=== PATIENT | female | born 1990 | race Hispanic/Latino ===

== ENCOUNTER 2018-03-03 04:48 | Emergency (ER) | payer SELFPAY ==
[~2018-03-03] VITALS: Ht 154.9 cm; Wt 72.6 kg
--- OUTSIDE RECORDS SUMMARY | 2018-03-03 04:51 | XMS REPORT | Clinical Summary ---
Author Author KADIE [facility] Address Unknown Phone Unavailable Care Team Providers Care Endoscopic Technician Name Role Phone Sharpless PCP Allergies No Known Allergies Medications No known medications Active Problems Not on file Social History Date Tobacco Use Types Packs/Day Years Used Never Assessed Alcohol Use Drinks/Week oz/Week Comments No Sex Assigned at Date Recorded Not on file Industry Job Start Date Occupation Not on file Not on file Not on file Travel End Travel History Travel Start No recent travel history available. Last Filed Vital Signs Not on file Plan of Treatment Not on file Results Not on fileafter 03/02/2017
--- OUTSIDE RECORDS SUMMARY | 2018-03-03 04:51 | XMS REPORT | Clinical Summary ---
Author Author [facility] Organization [facility] Address Unknown Phone Unavailable Care Team Providers Care Java Security Architect Name Role Phone PCP Unavailable Allergies No Known Allergies Current Medications Prescription Sig. Disp. Refills Start End Date Status Date vitamins Take 1 tablet by mouth 90 tablet 3 05/13/19 Active ( PLUS) 27-1 mg daily. 14 TabIndications: omeprazole (PRILOSEC) 20 Take 1 capsule by mouth 30 capsule 3 05/17/19 Active mg delayed release daily. 14 capsuleIndications: Nausea/vomiting in , Abdominal pain complicating , antepartum acetaminophen-codeine Take 1 tablet by mouth 15 tablet 0 03/01/20 03/08/20 Active (TYLENOL/CODEINE #3) every 8 hours as needed 18 18 300-30 mg per for up to 7 days for tabletIndications: Pain. Abdominal pain complicating , antepartum, History of laparoscopic cholecystectomy gabapentin (NEURONTIN) Take 1 capsule by mouth 3 21 capsule 0 03/01/20 03/08/20 Active 100 mg times daily for 7 days. 18 18 capsuleIndications: Right upper quadrant abdominal pain, Abdominal pain complicating , antepartum, Incisional pain promethazine (PHENERGAN) Take 1 tablet by mouth 30 tablet 0 05/17/19 03/01/20 Discontin 25 mg tabletIndications: every 6 hours as needed 14 18 ued Nausea/vomiting in for Nausea or Vomiting. , Abdominal pain complicating , antepartum ondansetron (ZOFRAN) 8 mg Take 1 tablet by mouth 30 tablet 0 05/17/19 03/01/20 Discontin tabletIndications: every 8 hours as needed 14 18 ued Nausea/vomiting in for Nausea. , Abdominal pain complicating , antepartum docusate sodium (COLACE) Take 1 capsule by mouth 2 60 capsule 0 05/17/19 03/01/20 Discontin 100 mg times daily. 14 18 ued capsuleIndications: Nausea/vomiting in Active Problems Problem Noted Date Abdominal pain complicating , antepartum, General Surgery 05/15/2013 consulted for cholecystitis (only sludge on U/S). 05/13/2013 Nausea Right upper quadrant abdominal pain History of laparoscopic cholecystectomy Encounters Date Type Specialty Care Team Description 03/02/2018 Emergency Emergency Medicine 02/27/2018 Emergency Tori Amaya MD Right upper quadrant - Teo Montilla MD abdominal pain (Primary 03/01/2018 Dx); Nausea; Abdominal pain complicating , antepartum, General Surgery consulted for cholecystitis (only sludge on U/S).; History of laparoscopic cholecystectomy; Incisional pain after 03/02/2017 Social History Tobacco Use Types Packs/Day Years Used Date Never Smoker Smokeless Tobacco: Never Used Alcohol Use Drinks/Week oz/Week Comments Yes Sex Assigned at Date Recorded Not on file Last Filed Vital Signs Vital Sign Reading Time Taken Blood Pressure 143/91 03/02/2018 3:06 AM TALEND DEVELOPER Pulse 138 03/02/2018 3:21 AM TALEND DEVELOPER Temperature 36.8 C (98.2 F) 03/02/2018 3:06 AM TALEND DEVELOPER Respiratory Rate 20 03/02/2018 3:06 AM TALEND DEVELOPER Oxygen Saturation 96% 03/02/2018 3:06 AM TALEND DEVELOPER Inhaled Oxygen - - Concentration Weight 68 kg (150 lb) 02/27/2018 9:30 PM TALEND DEVELOPER Height 154.9 cm (5' 1") 02/27/2018 9:30 PM TALEND DEVELOPER Body Mass Index 28.34 02/27/2018 9:30 PM TALEND DEVELOPER Plan of Treatment Date Type Specialty Care Team Description 03/08/2018 Office Visit Family Practice Teo Montilla MD Department of Internal Medicine - [facility] [address], [id number] [place] [address] Audelia Monroy MD [address] [place] [id number] [phone] Health Maintenance Due Date Last Done Comments Cervical Cancer Scrn (3 2010 Yrs) IMM Influenza Seasonal 01/01/2018Jan to June (>/=19 yrs) Procedures Procedure Name Priority Date/Time Associated Diagnosis Comments BMP POC Routine 03/02/2018 Results for this 3:38 AM TALEND DEVELOPER procedure are in the results section. LIVER PROFILE STAT 03/02/2018 Results for this 3:28 AM TALEND DEVELOPER procedure are in the results section. CBC/DIFF STAT 03/02/2018 Results for this 3:28 AM TALEND DEVELOPER procedure are in the results section. LIPASE STAT 03/02/2018 Results for this 3:28 AM TALEND DEVELOPER procedure are in the results section. 12 LEAD EKG Routine 03/02/2018 Results for this 3:16 AM TALEND DEVELOPER procedure are in the results section. CBC/DIFF Routine 03/01/2018 Results for this 6:01 AM TALEND DEVELOPER procedure are in the results section. COMPREHENSIVE METABOLIC Routine 03/01/2018 Results for this PANEL(DBIL NOT INCLUDED) 6:01 AM TALEND DEVELOPER procedure are in the results section. COMPREHENSIVE METABOLIC Routine 02/28/2018 Results for this PANEL(DBIL NOT INCLUDED) 4:00 AM TALEND DEVELOPER procedure are in the results section. CBC/DIFF Routine 02/28/2018 Results for this 4:00 AM TALEND DEVELOPER procedure are in the results section. SEQUENTIAL COMPRESSION Routine 02/27/2018 PUMP 6:[address] ABDOMEN AND PELVIS STAT 02/27/2018 Right upper quadrant Results for this CONTRAST 2:16 PM TALEND DEVELOPER abdominal pain procedure are in the results section. POCT URINE DIPSTICK - STAT 02/27/2018 Results for this 1:55 PM TALEND DEVELOPER procedure are in the results section. BMP POC Routine 02/27/2018 Results for this 1:51 PM TALEND DEVELOPER procedure are in the results section. CBC/DIFF STAT 02/27/2018 Results for this 1:46 PM TALEND DEVELOPER procedure are in the results section. MAGNESIUM STAT 02/27/2018 Results for this 1:46 PM TALEND DEVELOPER procedure are in the results section. PHOSPHORUS STAT 02/27/2018 Results for this 1:46 PM TALEND DEVELOPER procedure are in the results section. LIPASE STAT 02/27/2018 Results for this 1:46 PM TALEND DEVELOPER procedure are in the results section. LIVER PROFILE STAT 02/27/2018 Results for this 1:46 PM TALEND DEVELOPER procedure are in the results section. after 03/02/2017 Results * BMP POC (03/02/2018 3:38 AM) Only the most recent of 2 results within the time period is included. CO2 POC 20 (L) 21 - 32 mmol/L BT MAIN-STATION 1 Chloride POC 103 98 - 107 mmol/L BT MAIN-STATION 1 Potassium POC 3.8 3.50 - 5.10 mmol/L BT MAIN-STATION 1 Sodium POC 138 136 - 145 mmol/L BT MAIN-STATION 1 Glucose POC 142 (H) 74 - 106 mg/dL BT MAIN-STATION 1 Urea Nitrogen POC 5 (L) 7 - 18 mg/dL BT MAIN-STATION 1 Creatinine POC 0.8 0.6 - 1.3 mg/dL BT MAIN-STATION 1 Calcium Ionized POC 1.22 1.15 - 1.29 mmol/L BT MAIN-STATION 1 Hemoglobin POC 16.0 12.0 - 16.0 g/dL BT MAIN-STATION 1 Hematocrit POC 47.0 37.0 - 47.0 % BT MAIN-STATION 1 GFR, Estimated >60 mL/min/1.73 m2 BT MAIN-STATION 1 GFR, Estim, Afr-Am >60 mL/min/1.73 m2 BT MAIN-STATION 1 Performing Organization Address [facility] Phone Number MISYS MAIN-STATION 1 * LIVER PROFILE (03/02/2018 3:28 AM) Only the most recent of 2 results within the time period is included. T Protein 7.6 6.0 - 8.3 g/dL BT MAIN-STATION 1 Albumin 4.7 3.7 - 5.3 g/dL BT MAIN-STATION 1 T Bilirubin 0.8 0.2 - 1.2 mg/dL BT MAIN-STATION 1 Alk Phos 94 34 - 104 U/L BT MAIN-STATION 1 AST 29 13 - 39 U/L BT MAIN-STATION 1 ALT 72 (H) 7 - 52 U/L BT MAIN-STATION 1 D Bilirubin 0.2 0.0 - 0.2 mg/dL BT MAIN-STATION 1 Specimen Blood Performing Organization Address [facility] Phone Number MISYS BT [facility]IN-ST[facility] 1 * LIPASE (03/02/2018 3:28 AM) Only the most recent of 2 results within the time period is included. Lipase 32 11 - 82 U/L BT MAIN-STATION 1 Specimen Blood Performing Organization Address [facility] Phone Number MISYS BT MAIN-STATION 1 * CBC/DIFF (03/02/2018 3:28 AM) Only the most recent of 4 results within the time period is included. WBC 13.0 (H) 4.5 - 11.0 K/uL BT MAIN-STATION 2 RBC 4.74 4.20 - 5.40 M/uL BT MAIN-STATION 2 Hemoglobin 13.4 12.0 - 16.0 g/dL BT MAIN-STATION 2 Hematocrit 40.6 37.0 - 47.0 % BT MAIN-STATION 2 MCV 86 82 - 92 fL BT MAIN-STATION 2 MCH 28.3 27.0 - 32.0 pg BT MAIN-STATION 2 MCHC 33.0 32.0 - 36.0 g/dL BT MAIN-STATION 2 RDW 45.5 36.4 - 46.3 fL BT MAIN-STATION 2 Platelet 327 150 - 400 K/uL BT MAIN-STATION 2 Mean Platelet Volume 12.5 (H) 9.4 - 12.4 fL BT MAIN-STATION 2 Percent NRBC 0.0 BT MAIN-STATION 2 Absolute NRBC 0.00 BT MAIN-STATION 2 Neutrophil 80.7 (H) 34.0 - 70.0 % BT MAIN-STATION 2 Lymphocyte 11.2 (L) 20.0 - 50.0 % BT MAIN-STATION 2 Monocyte 7.4 5.0 - 12.0 % BT MAIN-STATION 2 Eosinophil 0.0 (L) 0.7 - 5.0 % BT MAIN-STATION 2 Basophil 0.2 0.1 - 1.2 % BT MAIN-STATION 2 Pct Immat Gran 0.5 0.0 - 0.5 BT MAIN-STATION 2 Neutrophil, Abs 10.51 (H) 1.56 - 6.13 K/uL BT MAIN-STATION 2 Lymphocyte, Abs 1.46 1.18 - 3.74 K/uL BT MAIN-STATION 2 Monocyte, Abs 0.96 (H) 0.24 - 0.36 K/uL BT MAIN-STATION 2 Eosinophil, Abs 0.00 (L) 0.04 - 0.36 K/uL BT MAIN-STATION 2 Basophil, Abs 0.03 0.01 - 0.08 K/uL BT MAIN-STATION 2 Absol Immat Gran 0.07 (H) 0.00 - 0.03 K/uL BT MAIN-STATION 2 Specimen Blood Performing Organization Address City/State/Zipcode Phone Number MISYS MAIN-STATION 2 * 12 LEAD EKG (03/02/2018 3:16 AM) 12 LEAD EKG FOR [facility] Test Date:2018-03-02 Pat Name: ARISTEO Patel artment: [id number] Room: [facility] Gender: F Solar Crew Member: [id number] :1989-04 Requested By: LJ CASE Order Number: [id number] Reading MD: oneal ulloa Measurements Intervals [place] Rate: 138 P: 61 MS: 123 QRS: 40 QRSD: 78 T:4 QT: 278 QTc:422 Interpretive Statements SINUS TACHYCARDIA NONSPECIFIC ST & T-WAVE ABNORMALITY ABNORMAL RHYTHM ECG Electronically Signed On 03-02-2018 20:05:12 TALEND DEVELOPER by oneal ulloa Performing Organization Address City/[facility] Phone Number [facility] * COMPREHENSIVE METABOLIC PANEL(DBIL NOT INCLUDED) (03/01/2018 6:01 AM) Only the most recent of 2 results within the time period is included. Albumin 3.9 3.7 - 5.3 g/dL BT MAIN-STATION 1 Calcium 9.2 8.6 - 10.3 mg/dL BT MAIN-STATION 1 CO2 26 21 - 31 mmol/L BT MAIN-STATION 1 Chloride 101 98 - 107 mmol/L BT MAIN-STATION 1 Creatinine 0.50 (L) 0.6 - 1.2 mg/dL BT MAIN-STATION 1 Glucose 98 70 - 110 mg/dL BT MAIN-STATION 1 Alk Phos 84 34 - 104 U/L BT MAIN-STATION 1 Potassium 4.1 3.5 - 5.1 mmol/L BT MAIN-STATION 1 Sodium 136 136 - 145 mmol/L BT MAIN-STATION 1 ALT 72 (H) 7 - 52 U/L BT MAIN-STATION 1 AST 33 13 - 39 U/L BT MAIN-STATION 1 Urea Nitrogen 5 (L) 7 - 25 mg/dL BT MAIN-STATION 1 T Bilirubin 0.6 0.2 - 1.2 mg/dL BT MAIN-STATION 1 T Protein 6.3 6.0 - 8.3 g/dL BT MAIN-STATION 1 GFR, Estimated >60 mL/min/1.73 m2 BT MAIN-STATION 1 GFR, Estim, Afr-Am >60 mL/min/1.73 m2 BT MAIN-STATION 1 Anion Gap 9 BT MAIN-STATION 1 Specimen Blood Performing Organization Address City/[facility]/Zipcode Phone Number MISYS BT MAIN-STATION 1 * CT ABDOMEN AND PELVIS CONTRAST (02/27/2018 2:16 PM) Impressions Performed At IMPRESSION: SMS Limited CT due to retained barium in colon with streak artifacts. Expected post surgical changes from recent cholecystectomy. No evidence of abscess formation in the gallbladder fossa or acute inflammatory findings in the abdomen or pelvis within limitations of this exam. If the report is "FINALIZED" it indicates that the attending/staff radiologist has reviewed the images and agrees with the resident's interpretation. I have reviewed the study and agree with the findings in this report. Signed By: Armando Campa MD, 02/27/2018 3:13 PM Narrative Performed At EXAM: CT Abdomen and Pelvis WITH contrast SMS INDICATION: abdominal pain; RUQ, recent cck ADDITIONAL HISTORY: As per EPIC, 27yo F 2wk s/p lap ebony who presents with severe RUQ pain, nausea, and vomiting. As per ophthalmic technician, patient had a barium swallow yesterday. COMPARISON: Abdominal ultrasound 05/13/2013 TECHNIQUE: Abdomen and pelvis were scanned utilizing a multidetector helical scanner from the lung base to the pubic symphysis after administration of IV contrast. Coronal and sagittal reformations were obtained. Routine protocol was performed. Scan was performed when during portal venous phase. IV CONTRAST: 100 mL of Omnipaque 300 COMPLICATIONS: None RADIATION DOSE: Total DLP: 732 mGy*cm Estimated effective dose: (DLP x 0.015 x size factor) mSv CTDIvol has been reviewed. It is below the limits set by the Radiation Protocol Committee (RPC). FINDINGS: Evaluation limited by streak artifacts from contrast in the ascending and transverse colon. LINES and TUBES: None. LOWER THORAX:Mild dependent atelectasis. HEPATOBILIARY: Irregular hypodensity along the falciform ligament, likely fat deposition. Subcentimeter hypodensity in the left hepatic lobe (series 2, image 29) measuring 0.5 cm is too small to characterize. No hepatic mass. Mild biliary dilatation likely secondary to reservoir effect. GALLBLADDER: Surgically absent with postsurgical changes in the gallbladder fossa. SPLEEN: No splenomegaly. PANCREAS: No focal masses or ductal dilatation. ADRENALS: No adrenal nodules KIDNEYS/URETERS: Evaluation of the right kidney is limited by streak artifacts from adjacent contrast filled ascending colon. Within this limitation, the kidneys enhance symmetrically.No hydronephrosis. No cystic or solid mass lesions.No stones. GI TRACT: Contrast-filled ascending and transverse colon. No abnormal distention, wall thickening, or evidence of bowel obstruction.Appendix is normal. PELVIC ORGANS/BLADDER: Markedly limited evaluation due to streak artifacts. Otherwise, the bladder is unremarkable. The uterus is anteverted. LYMPH NODES: No lymphadenopathy. VESSELS: Unremarkable. PERITONEUM / RETROPERITONEUM: No free air or fluid. BONES: Unremarkable. SOFT TISSUES: Postsurgical changes with a few scattered pockets of gas in the soft tissues of the abdominal wall from recent cholecystectomy. Procedure Note Interface, Rad/Mammog In - 02/27/2018 3:18 PM TALEND DEVELOPER EXAM: CT Abdomen and Pelvis WITH contrast INDICATION: abdominal pain; RUQ, recent cck ADDITIONAL HISTORY: As per EPIC, 27yo F 2wk s/p lap ebony who presents with severe RUQ pain, nausea, and vomiting. As per ophthalmic technician, patient had a barium swallow yesterday. COMPARISON: Abdominal ultrasound 05/13/2013 TECHNIQUE: Abdomen and pelvis were scanned utilizing a multidetector helical scanner from the lung base to the pubic symphysis after administration of IV contrast. Coronal and sagittal reformations were obtained. Routine protocol was performed. Scan was performed when during portal venous phase. IV CONTRAST: 100 mL of Omnipaque 300 COMPLICATIONS: None RADIATION DOSE: Total DLP: 732 mGy*cm Estimated effective dose: (DLP x 0.015 x size factor) mSv CTDIvol has been reviewed. It is below the limits set by the Radiation Protocol Committee (RPC). FINDINGS: Evaluation limited by streak artifacts from contrast in the ascending and transverse colon. LINES and TUBES: None. LOWER THORAX: Mild dependent atelectasis. HEPATOBILIARY: Irregular hypodensity along the falciform ligament, likely fat deposition. Subcentimeter hypodensity in the left hepatic lobe (series 2, image 29) measuring 0.5 cm is too small to characterize. No hepatic mass. Mild biliary dilatation likely secondary to reservoir effect. GALLBLADDER: Surgically absent with postsurgical changes in the gallbladder fossa. SPLEEN: No splenomegaly. PANCREAS: No focal masses or ductal dilatation. ADRENALS: No adrenal nodules KIDNEYS/URETERS: Evaluation of the right kidney is limited by streak artifacts from adjacent contrast filled ascending colon. Within this limitation, the kidneys enhance symmetrically. No hydronephrosis. No cystic or solid mass lesions. No stones. GI TRACT: Contrast-filled ascending and transverse colon. No abnormal distention, wall thickening, or evidence of bowel obstruction. Appendix is normal. PELVIC ORGANS/BLADDER: Markedly limited evaluation due to streak artifacts. Otherwise, the bladder is unremarkable. The uterus is anteverted. LYMPH NODES: No lymphadenopathy. VESSELS: Unremarkable. PERITONEUM / RETROPERITONEUM: No free air or fluid. BONES: Unremarkable. SOFT TISSUES: Postsurgical changes with a few scattered pockets of gas in the soft tissues of the abdominal wall from recent cholecystectomy. IMPRESSION IMPRESSION: Limited CT due to retained barium in colon with streak artifacts. Expected post surgical changes from recent cholecystectomy. No evidence of abscess formation in the gallbladder fossa or acute inflammatory findings in the abdomen or pelvis within limitations of this exam. If the report is "FINALIZED" it indicates that the attending/staff radiologist has reviewed the images and agrees with the resident's interpretation. I have reviewed the study and agree with the findings in this report. Signed By: Armando Campa MD, 02/27/2018 3:13 PM Performing Organization Address [facility] Phone Number SMS * POCT URINE DIPSTICK - (02/27/2018 1:55 PM) Control PRESENT NEGATIVE * PHOSPHORUS (02/27/2018 1:46 PM) Phosphorus 3.2 2.5 - 5.0 mg/dL BT MAIN-STATION 1 Specimen Blood Performing Organization Address [facility] Phone Number MISYS BT MAIN-STATION 1 * MAGNESIUM (02/27/2018 1:46 PM) Magnesium 1.6 (L) 1.9 - 2.7 mg/dL BT MAIN-STATION 1 Specimen Blood Performing Organization Address [facility] Phone Number MISYS BT MAIN-STATION 1 after 03/02/2017
--- OUTSIDE RECORDS SUMMARY | 2018-03-03 04:51 | XMS REPORT ---
Author [facility] Address Unknown Phone Unavailable Care Team Providers Care Line Servicer Name Role Phone Unavailable Unavailable Payers Payer Name Policy Type Policy Number Effective Date Expiration Date Problems This patient has no known problems. Allergies, Adverse Reactions, Alerts Allergy Name Allergy Type Status Severity Reaction(s) Onset Date Inactive Date Treating Clinician Comments No Known Allergies DA Active U 2018-03-02 00:00:00 No Known Allergies DA Active U 2018-02-25 00:00:00 No Known Allergies DA Active U 2018-02-22 00:00:00 No Known Allergies DA Active U 2018-02-20 00:00:00 No Known Allergies DA Active U 2018-02-05 00:00:00 No Known Allergies DA Active U 2018-02-04 00:00:00 No Known Allergies DA Active U 2015-01-14 00:00:00 Medications This patient has no known medications. Encounters Start Date/Time End Date/Time Encounter Type Admission Type Attending [facility] Care Department Encounter ID 2018-03-02 03:06:00 2018-03-02 03:06:00 Emergency [facility] [id number]
[2018-03-03] MEDS ORDERED: SODIUM CHLORIDE 0.9% 1000ML 1,000 ML IV STA (05:01)
[2018-03-03] MEDS ORDERED: PANTOPRAZOLE 40 MG 10ML VIAL IV STA (05:01)
[2018-03-03 05:15] LABS: BASOPHILS % 0.2 % (0.0-1.0); HEMOGLOBIN 12.5 g/dL (12.0-16.0); LYMPHOCYTES # (AUTO) 1.5 (1.0-3.2); LYMPHOCYTES % 11.9 % (18.0-39.1); MEAN CORPUSCULAR HEMOGLOBIN 27.8 pg (28-32); MEAN CORPUSCULAR HGB CONC 32.1 g/dL (31-35); MEAN CORPUSCULAR VOLUME 86.7 fL (81-99); MONOCYTES % 8.1 % (4.4-11.3); NEUTROPHILS # (AUTO) 10.2 (2.1-6.9); NEUTROPHILS % 79.4 % (38.7-80.0); PLATELET COUNT 295 x10e3/uL (140-360); RED CELL DISTRIBUTION WIDTH 14.8 % (11.7-14.4)
[2018-03-03] MEDS ORDERED: PROMETHAZINE 25MG/ NS 50ML (IV) IV ONE (05:15)
[2018-03-03] MEDS ORDERED: DIPHENHYDRAMINE HCL INJ 50 MG/ML VIAL IV ONE (05:15)
[2018-03-03] MEDS ORDERED: DICYCLOMINE HCL 20 MG/2 ML VIAL IM ONE (05:15)
[2018-03-03 05:36] LABS: PREGNANCY TEST, URINE NEGATIVE (NEGATIVE)
[2018-03-03 05:46] LABS: BILIRUBIN,URINE 1+ (NEGATIVE); KETONES,URINE 3+ (NEGATIVE); LEUKOCYTE ESTERASE ,URINE TRACE (NEGATIVE); NITRITE,URINE NEGATIVE (NEGATIVE); PROTEIN,URINE DIPSTICK NEGATIVE (NEGATIVE); URINE UROBILINOGEN 0.2 mg/dL (0.2 - 1)
[2018-03-03 05:48] LABS: BACTERIA,URINE MANY /HPF; CLARITY,URINE HAZY (CLEAR); COLOR,URINE YELLOW (YELLOW); EPITHELIAL CELLS,URINE MANY /LPF; RBC,URINE 0-5 /HPF (0-5)
[2018-03-03 05:49] LABS: ALANINE AMINOTRANSFERASE 69 IU/L (0-55); ALBUMIN 4.5 g/dL (3.5-5.0); ALBUMIN/GLOBULIN RATIO 1.3 (0.8-2.0); ALKALINE PHOSPHATASE 85 IU/L (40-150); AMYLASE 102 U/L (25-125); BLOOD UREA NITROGEN 6 mg/dL (7-26); BUN/CREATININE RATIO 7 (6-25); CALCIUM 10.1 mg/dL (8.4-10.2); CARBON DIOXIDE 19 mmol/L (22-29); CHLORIDE 104 mmol/L (98-107); CREATININE, SERUM 0.81 mg/dL (0.57-1.11); EST GLOMERULAR FILTRATION RATE > 60 ML/MIN (60-); GLUCOSE 147 mg/dL (74-118); LIPASE 36 U/L (8-78); SODIUM 137 mmol/L (136-145)
[2018-03-03] MEDS ORDERED: DIATRIZOATE MEGL/DIATRIZOA SOD 30 ML BTL PO ONE (05:50)
[2018-03-03 06:02] LABS: AMPHETAMINES SCREEN,URINE NEGATIVE (NEGATIVE); BENZODIAZEPINES SCREEN,URINE POSITIVE (NEGATIVE); PHENCYCLIDINE SCREEN,URINE NEGATIVE (NEGATIVE)
--- NOTE | 2018-03-03 09:30 | Diagnostic Imaging Report ---
EXAM: CT Abdomen and Pelvis WITH contrast INDICATION: ^ABD PAIN, S/P SHALONDA 10 DAYS AGO ^[id number] ^0812 COMPARISON: None. TECHNIQUE: Abdomen and pelvis were scanned utilizing a multidetector helical scanner from the lung base to the pubic symphysis after administration of IV contrast. Coronal and sagittal reformations were obtained. Dose modulation, iterative reconstruction, and/or weight based adjustment of the mA/kV was utilized to reduce the radiation dose to as low as reasonably achievable. Routine protocol was performed. Scan was performed when during portal venous phase. IV CONTRAST: 100 mL of Isovue-370 ORAL CONTRAST: None. COMPLICATIONS: None RADIATION DOSE: Total DLP: 364.89 mGy*cm Estimated effective dose: (DLP x 0.015 x size factor) mSv CTDIvol has been reviewed. It is below the limits set by the Radiation Protocol Committee (RPC). FINDINGS: LINES and TUBES: None. LOWER THORAX: Unremarkable HEPATOBILIARY: No focal hepatic lesions. Hypodensity along the falciform ligament is probably focal fat deposition. No biliary ductal dilation. GALLBLADDER: Surgically absent. SPLEEN: No splenomegaly. PANCREAS: No focal masses or ductal dilatation. ADRENALS: No adrenal nodules KIDNEYS/URETERS: Kidneys enhance symmetrically. No hydronephrosis. No cystic or solid mass lesions. Contrast excretion through the bilateral collecting system, limits evaluation of renal stones. GI TRACT: Significant artifact from prior GI contrast limits evaluation. No evidence of bowel obstruction. Appendix is not clearly visualized. PELVIC ORGANS/BLADDER: Contrast within bladder. LYMPH NODES: No lymphadenopathy. VESSELS: Unremarkable. PERITONEUM / RETROPERITONEUM: No free air or fluid. BONES: Unremarkable. Degenerative changes of the right SI joint. SOFT TISSUES: Unremarkable. IMPRESSION: 1. Limited study due to streak artifacts, caused by barium within colon, probably from prior GI study. Within this context, no definite acute inflammatory process identified in the abdomen/pelvis. 2. Postsurgical changes of the cholecystectomy. Signed by: Dr. Armando Campa MD on 03/03/2018 9:27 AM
[2018-03-03] MEDS ORDERED: SODIUM CHLORIDE 0.9% 50ML 50 ML ONE (17:48)
[2018-03-03] MEDS ORDERED: IOPAMIDOL 370 MG/ML 200 ML INFUS..BTL INJ ONE (17:48)
== END 2018-03-03 10:06 | disposition home or self-care (01) ==
LOC: ER 04:48
DX: R10.84 Generalized abdominal pain (principal); R11.2 Nausea with vomiting, unspecified; K59.00 Constipation, unspecified
CPT/HCPCS: 36415; 74177; 80053; 80307; 81001; 81025; 82150; 83690; 85025; 96374; 99284; J0500; J1200; J2550; J7030; Q9663; Q9967